=== PATIENT | male | born 1955 | race Caucasian/White ===

== ENCOUNTER → 2024-09-25 | Outpatient (REF) | payer MEDICARE | LOC: RAD 08:55 | PROVIDERS: ATTEND Internal Medicine | DX: J18.9 Pneumonia, unspecified organism (principal); I50.32 Chronic diastolic (congestive) heart failure | CPT/HCPCS: 93306 ==

== ENCOUNTER → 2024-11-06 | Outpatient (REF) | payer MEDICARE ==
[~2024-11-06] MED LIST: IOPAMIDOL 370 MG/ML 100 ML INFUS..BTL INJ ONE; SODIUM CHLORIDE 0.9% 100 ML ONE
[2024-11-06 08:52] LABS: EST GLOMERULAR FILTRATION RATE 88.0 ML/MIN (>=60)
== END ==
LOC: CT 07:32
PROVIDERS: ATTEND Internal Medicine
DX: I77.1 Stricture of artery (principal)
CPT/HCPCS: 36415; 71275; 82565; 84520; J7050; Q9967

== ENCOUNTER → 2024-11-13 | Outpatient (REF) | payer MEDICARE | LOC: US 14:05 | PROVIDERS: ATTEND Surgery | DX: N50.89 Other specified disorders of the male genital organs (principal); N43.3 Hydrocele, unspecified; I86.1 Scrotal varices | CPT/HCPCS: 76870; 93976 ==